=== PATIENT | female | born 1985 | race Caucasian/White ===

== ENCOUNTER 2020-08-20 10:41 | Inpatient (IN) | payer OTHER ==
[~2020-08-20] VITALS: Ht 170.2 cm; Wt 89.9 kg
[2020-08-20 11:10] LABS: BASOPHILS ABSOLUTE AUTO 0.03 K/mm3 (0.00-0.23); BASOPHILS PERCENT AUTO 0 % (0-2); EOSINOPHILS ABSOLUTE AUTO 0.23 K/mm3 (0.00-0.68); EOSINOPHILS PERCENT AUTO 3 % (0-6); Hematocrit 39.8 % (33.0-51.0); Hemoglobin 12.7 g/dL (11.5-16.0); IMMATURE GRAN ABSOLUTE AUTO 0.01 K/mm3 (0.00-0.10); IMMATURE GRAN PERCENT AUTO 0 % (0-1); LYMPHOCYTES ABSOLUTE AUTO 4.37 K/mm3 (0.84-5.20); LYMPHOCYTES PERCENT AUTO 56 % (21-46); MONOCYTES PERCENT AUTO 8 % (4-13); Mean Corpuscular HGB 28.2 pg (26.0-34.0); Mean Corpuscular HGB Conc 31.9 g/dL (31.5-36.5); Mean Corpuscular Volume 88 fL (80-100); Mean Platelet Volume 9.1 fL (9.1-12.4); NEUTROPHILS ABSOLUTE AUTO 2.51 K/mm3 (1.96-9.15); NEUTROPHILS PERCENT AUTO 32 % (41-73); Platelet Count 146 K/mm3 (150-400); RDW Coefficient Variation 14.6 % (11.7-14.2); RDW Standard Deviation 47.8 fL (35.1-46.3); White Blood Cell Count 7.75 K/mm3 (4.00-11.30)
[2020-08-20 11:30] LABS: Acetaminophen, Random <2.0 ug/mL (10.0-30.0); Alanine Aminotransfer (ALT/SGP 70 U/L (12-78); Albumin, Blood 3.6 g/dL (3.4-5.0); Albumin/Globulin Ratio 0.8 (0.8-1.8); Alk Phos 156 U/L (50-136); Anion Gap 4 mmol/L (6-16); Aspartate Aminotrans (AST/SGOT 78 U/L (12-37); Bilirubin, Total 0.3 mg/dL (0.1-1.0); Blood Urea Nitrogen 5 mg/dL (8-24); Bun/Creatinine Ratio 5.9 (12.0-20.0); CO2, Blood 30 mmol/L (21-32); Calcium, Blood 8.8 mg/dL (8.5-10.1); Chloride, Blood 109 mmol/L (98-108); Creatinine, Blood 0.84 mg/dL (0.40-1.00); Ethanol (Alcohol), Blood, Med 360 mg/dL; Free Thyroxine 1.28 ng/dL (0.70-1.60); Globulin, Blood 4.5 g/dL (2.2-4.0); Glomerular Filtration Rate >60 (60-); Glucose, Blood 109 mg/dL (70-99); Potassium, Blood 4.3 mmol/L (3.5-5.5); Salicylate 2.8 mg/dL (2.8-20.0); Sodium, Blood 143 mmol/L (136-145); Total Protein, Blood 8.1 g/dL (6.4-8.2)
[2020-08-20 11:54] LABS: U Amphetamine Screen DETECTED; U Barbituate Screen Not Detected; U Benzodiazapine Screen Not Detected; U Buprenorphine Screen Not Detected; U Cannabinoids Screen Not Detected; U Cocaine Screen Not Detected; U Methadone Screen DETECTED; U Methamphetamine Screen Not Detected; U Opiates Screen Not Detected; U Oxycodone Screen Not Detected; U Phencyclidine Screen Not Detected; U Propoxyphene Screen Not Detected
[2020-08-20] MEDS ORDERED: OMEP20ER PO (13:32)
[2020-08-20] MEDS ORDERED: Amphetamine Sal20 MG PO (13:32)
[2020-08-20] MEDS ORDERED: NEURONTIN300 MG PO (13:32)
[2020-08-20] MEDS ORDERED: Phenergan25 M1 PO (13:33)
[2020-08-20] MEDS ORDERED: Ventolin/Prove6.7 GM INH (13:34)
[2020-08-20] MEDS ORDERED: Buspirone HCl30 MG PO (13:51)
[2020-08-20] MEDS ORDERED: METH40 PO (15:14)
--- NOTE | 2020-08-20 16:49 | NUR ---
Admission/[place] of Care: Patient arrived to unit at 1631hr via stretcher. Patient drowsy but awake and responding to verbal stimuli. Patient oriented to self, place, date/time, and partially to reason for admission. Patient also calm and cooperative with staff, therefore restraints removed upon arrival to unit. Patient denied all suicide ideations, stating she only took the pills and ETOH to get "loaded" before going into [facility]. Therefore, patient placed only on moderate suicide risk. Room mitigation completed before patient's arrival. Remote monitoring confirmed patient is on camera. Call also placed to Dr. Harvey before patient's arrival, confirmed that patient was to be placed on 2MD hold. Civil rights read to patient after arrival. Peripheral IV x1 to lt AC patent and intact, fluids infusing per MD order. Voided using bed-villegas without difficulty. Patient instructed to no get out of bed and instructed on use of call light. Will continue to monitor.
--- NOTE | 2020-08-20 19:10 | NUR ---
ASSUMED CARE PT IN ROOM SLEEPING. AWAKES WITH VERBAL STIMULI. PT VERBALIZED SHE WAS WET AND INCOTINENT OF LARGE AMOUNT OF URINE. PT WAS CLEANED UP. PT IS NPO. 1L NC SATS OF <92% WITH CLEAR LUNG SOUNDS. SR ON HEART MONITOR. LR @200 INFUSING. CIWA OF 4. PT IS ANXIOUS WITH NO REPORT OF PAIN. WILL CONTINUE TO MONITOR.
--- NOTE | 2020-08-20 21:25 | NUR ---
AT APPROX 2049 PRIYA CUMMINGS IN ICU; UPDATES ON PTS RESP RATE OF 6-7 WHILE ASLEEP. NARCAN WAS ORDERED. PT BECAME VERY AGITATED WHEN IN ROOM CALLING PHARMACY REGARDING NARCAN ORDER. SHE REFUSED THE MEDICATION AND SAID "SHE WAS GOING TO LEAVE." STATING THAT HER LEGS WOULD GO "CRAZY" AND THAT WOULD SEND HER INTO WITHDRAWL, WHICH SHE DID NOT WANT. PT STATED THAT THE CONTENTS OF THE BOTTLE SHE TOOK EARLIER TODAY WERE "2 LYRICA, 2 PROMETHAZINES, AND 2 BENADRYL." PT REPORTS DID NOT TAKE ANY ADERALL OTHER THAN HER ONE 20MG DOSE SHE USUALLY TAKES EARLY IN THE MORNING.
--- NOTE | 2020-08-20 21:50 | NUR ---
POISON CONTROL CALLED FOR UPDATE ON PT. NO NEW RECOMMENDATIONS GIVEN; CONTINUE TREATMENTS.
--- NOTE | 2020-08-20 22:55 | NUR ---
TALKE TO PRIYA CARUSO ABOUT PTS RESP RUNNING LESS THAN 8 WHEN SLEEPING AND PT REFUSING INITIALLY AND THEN AGREEING TO NARCAN IF SHE GOT SOMETHING WITH THE NARCAN TO KEEP HER FROM GOING INTO "BAD WITHDRAWALS IN HER LEGS". ORDER NOT TO GIVE NARCAN BECAUSE PT WAS ON METHADONE. ORDER TO PUT PT ON BIPAP. RT NOTIFIED.
[2020-08-21 04:02] LABS: BASOPHILS ABSOLUTE AUTO 0.01 K/mm3 (0.00-0.23); BASOPHILS PERCENT AUTO 0 % (0-2); EOSINOPHILS ABSOLUTE AUTO 0.11 K/mm3 (0.00-0.68); EOSINOPHILS PERCENT AUTO 2 % (0-6); Hematocrit 32.6 % (33.0-51.0); Hemoglobin 10.4 g/dL (11.5-16.0); IMMATURE GRAN ABSOLUTE AUTO 0.01 K/mm3 (0.00-0.10); IMMATURE GRAN PERCENT AUTO 0 % (0-1); LYMPHOCYTES PERCENT AUTO 48 % (21-46); MONOCYTES ABSOLUTE AUTO 0.31 K/mm3 (0.16-1.47); MONOCYTES PERCENT AUTO 6 % (4-13); Mean Corpuscular HGB 28.2 pg (26.0-34.0); Mean Corpuscular HGB Conc 31.9 g/dL (31.5-36.5); Mean Corpuscular Volume 88 fL (80-100); Mean Platelet Volume 8.8 fL (9.1-12.4); NEUTROPHILS ABSOLUTE AUTO 2.31 K/mm3 (1.96-9.15); NEUTROPHILS PERCENT AUTO 44 % (41-73); Platelet Count 114 K/mm3 (150-400); RDW Standard Deviation 48.6 fL (35.1-46.3); Red Blood Cell Count 3.69 M/mm3 (3.80-5.20); White Blood Cell Count 5.25 K/mm3 (4.00-11.30)
--- NOTE | 2020-08-21 04:05 | NUR ---
PT AWAKE IN ROOM, USED BEDPAN WITH MODERATE ASSIST. PT IS BECOMING AGITATED REGARDING NARCAN INCIDENT WHEN ADMITTED; PT IS ANXIOUS. STATES " YOU GUYS PUT ME INTO WITHRAWLS." STATES THAT SHE DOES NOT REMEMBER ANYTHING THAT HAPPENED AFTER SHE ARRIVED TO [facility]. ASKED PT WHAT SHE WAS TAKING LYRICA AND STATED THAT SHE DOES NOT HAVE A RX FOR IT. PT REPORTED THAT SHE TOOK "9 GABAPENTIN, 2 PROMETHAZINE, 2 BENADRYL, 2 LYRICA, AND 2 OMEPRAZOLE."
[2020-08-21 05:34] LABS: Alanine Aminotransfer (ALT/SGP 58 U/L (12-78); Albumin, Blood 2.6 g/dL (3.4-5.0); Albumin/Globulin Ratio 0.8 (0.8-1.8); Alk Phos 97 U/L (50-136); Anion Gap 5 mmol/L (6-16); Aspartate Aminotrans (AST/SGOT 121 U/L (12-37); Bilirubin, Total 0.4 mg/dL (0.1-1.0); Blood Urea Nitrogen 4 mg/dL (8-24); CO2, Blood 27 mmol/L (21-32); Calcium, Blood 7.9 mg/dL (8.5-10.1); Chloride, Blood 114 mmol/L (98-108); Creatinine, Blood 0.66 mg/dL (0.40-1.00); Globulin, Blood 3.3 g/dL (2.2-4.0); Glomerular Filtration Rate >60 (60-); Glucose, Blood 71 mg/dL (70-99); Potassium, Blood 4.1 mmol/L (3.5-5.5); Sodium, Blood 146 mmol/L (136-145)
--- NOTE | 2020-08-21 05:34 | NUR ---
SHIFT SUMMARY PT ALERT AND ORIENTED TO SELF, PLACE, TIME AND SURROUNDINGS; AND IN ROOM. PT BEDREST AND ON SI MODERATE HOLD PER ORDER. PT IS ABLE TO TURN AND ADJUST HERSELF IN BED. BP AND HEART RATE HAVE BEEN STABLE. SATS ARE >92%; RESP WERE LOW FROM 6-8 UNTIL PT WAS PUT ON BIPAP PER ORDER. PT SLEPT WELL THROUGHT THE NIGHT WITH SOME ANXIETY BUT NO AGITATION UNTIL THIS MORNING. NO PAIN REPORTED OTHER THAN A MINOR HEADACHE. CIWAS HAVE RANGED FROM 3 TO 5. NO ACUTE CHANGES.
[2020-08-21 05:36] LABS: Total Protein, Blood 5.9 g/dL (6.4-8.2)
--- NOTE | 2020-08-21 09:30 | NUR ---
PT UP IN ROOM INDEP. A/O X4. ANXIOUS BUT PLEASANT AND COOPERATIVE. C/O ACHING ALL OVER BODY. STATES SHE FEELS LIKE SHE IS STARTING TO GO THROUGH WITHDRAWLS. ALSO INQUIRING ABOUT METHADONE DOSE. CALLED DR. SANCHEZ WHO WILL COME SEE THE PATIENT AND START ALCOHOL WITHDRAWL PROTOCOL.
--- NOTE | 2020-08-21 18:30 | NUR ---
PT REMAINS A/O X4, PLEASANT AND COOPERATIVE ALL DAY. UP IN ROOM INDEP. LIBRIUM AND ATIVAN GIVEN WHEN CIWA REACHES 8. PT IS STAYING IN HOSPITAL THIS WEEKEND AND PLANS TO GO TO [facility] ON SUNDAY FOR INPT TREATMENT. NO SIGN OF DISTRESS. TRANSFERED TO MEDICAL FLOOR 327. REPORT GIVEN TO TRAY REN.
--- NOTE | 2020-08-21 19:11 | NUR ---
TRANSFER PT RECENTLY ARRIVED VIA WHEELCHAIR FROM ICU TO ROOM 327. PT INDEPENDENT IN ROOM, ASKING FOR SNACKS AND ICE CHIPS. NO COMPLAINTS AT THIS TIME. CALL LIGHT IN REACH. REPORT GIVEN TO TERELL REN.
--- NOTE | 2020-08-21 20:06 | NUR ---
MEDICATIONS: PATIENT IS REQUESTING HOME MEDS, GABAPENTIN AND PROMETHAZINE DUE TO N/T IN BILAT FEET AND NAUSEA. ALSO TWO ORDERS ARE PRESENT FOR IVF. DR MALLOY IS CALLED AND ORDERS FOR HOME MEDS ARE OBTAINED AND DC IVF.
[2020-08-22 05:25] LABS: Hematocrit 33.6 % (33.0-51.0); Hemoglobin 10.8 g/dL (11.5-16.0); Mean Corpuscular HGB 27.8 pg (26.0-34.0); Mean Corpuscular HGB Conc 32.1 g/dL (31.5-36.5); Mean Corpuscular Volume 86 fL (80-100); Mean Platelet Volume 9.7 fL (9.1-12.4); Platelet Count 109 K/mm3 (150-400); RDW Coefficient Variation 14.6 % (11.7-14.2); RDW Standard Deviation 46.2 fL (35.1-46.3); Red Blood Cell Count 3.89 M/mm3 (3.80-5.20); White Blood Cell Count 3.25 K/mm3 (4.00-11.30)
[2020-08-22 06:15] LABS: Alanine Aminotransfer (ALT/SGP 59 U/L (12-78); Albumin, Blood 2.7 g/dL (3.4-5.0); Albumin/Globulin Ratio 0.8 (0.8-1.8); Alk Phos 102 U/L (50-136); Anion Gap 5 mmol/L (6-16); Aspartate Aminotrans (AST/SGOT 122 U/L (12-37); Bilirubin, Total 0.5 mg/dL (0.1-1.0); Blood Urea Nitrogen 7 mg/dL (8-24); Bun/Creatinine Ratio 9.7 (12.0-20.0); CO2, Blood 31 mmol/L (21-32); Calcium, Blood 8.5 mg/dL (8.5-10.1); Chloride, Blood 106 mmol/L (98-108); Creatinine, Blood 0.72 mg/dL (0.40-1.00); Globulin, Blood 3.4 g/dL (2.2-4.0); Glomerular Filtration Rate >60 (60-); Glucose, Blood 128 mg/dL (70-99); Magnesium, Blood 2.1 mg/dL (1.6-2.4); Phosphorus, Blood 3.1 mg/dL (2.5-4.9); Potassium, Blood 3.8 mmol/L (3.5-5.5); Sodium, Blood 142 mmol/L (136-145); Total Protein, Blood 6.1 g/dL (6.4-8.2)
--- NOTE | 2020-08-22 06:52 | NUR ---
SHIFT SUMMARY: A&O TO SELF AND PLACE, A WEEK OFF ON THE DATE. VOIDING IN THE BATHROOM, NO BM THIS SHIFT. VSS, SCORING 9,8,9,8 ON WITHDRAWL SCALE. ALTERNATING ATIVAN AND LIBRIUM X2 EACH ARE EFFECTIVE CONTROLING WITHDRAWL S/S. REPORTING NAUSEA BUT IS CONTINUOUSLY ASKING FOR FOOD THROUGH THE SHIFT, PROMETHAZINE WAS GIVEN WITH FAIR EFFECT. ENCOURAGED TO SLOW DOWN ON PO INTAKE TO HELP SETTLE STOMACH.
--- NOTE | 2020-08-22 16:36 | NUR ---
SHIFT SUMMARY MEDICATED FOR ALCOHOL WITHDRAWALS PER EMAR. PT HAS BEEN PLEASANT AND COOPERATIVE, ANXIOUS AT TIMES. GOOD APPETITE. C/O NAUSEA BUT NO VOMITING NOTED. MEDICATED FOR HEADACHE PER DR. SANCHEZ ORDERS. PT UP IN ROOM INDEPENDENTLY. NO SIGNS OF DISTRESS. PLANS FOR PT TO DISCHARGE TO [facility] TOMORROW. CALL LIGHT IN REACH. WILL CONTINUE TO MONITOR AND REPORT TO ONCOMING RN.
--- NOTE | 2020-08-23 07:25 | NUR ---
SHIFT SUMMARY: A&OX4 WITH PERIODS OF CONFUSION AND REPORTED DIZZINESS, BED ALARM IS UTILIZED FOR SAFETY. SCORING 8&9'S ON ETOH WITHDRAWL SCALES, LIBRIUM AND ATIVAN ARE GIVEN PER MAR. PATIENT REPORTS BETTER EFFECT WITH LIBRIUM. PERSISTANT NAUSEA, PROMETHAZINE WAS GIVEN X1 AND ICE CHIPS ARE ENCOURAGED. PATIENT CONTINUED TO REQUEST FOOD WITH NAUSEA PRESENT.
[2020-08-23] MEDS ORDERED: HYDRA25 PO (09:48)
--- NOTE | 2020-08-23 11:47 | NUR ---
DISCHARGE PT DISCHARGED TO [facility] VIA [facility], ESCORTED OUT VIA W/C BY TECHNICAL SALES ADVISOR. PT FORGETFUL, SCATTERED IDEAS, DIFFICULT FOR HER TO FOCUS, STAY ON TRACK. REVIEWED DISCHARGE INSTRUCTIONS, FOLLOW UP APPOINTMENT AND MEDICATION LIST WITH PT. PT VERBALLY INDICATED UNDERSTANDING.
== END 2020-08-23 11:36 | disposition home or self-care (01) | DRG 896 ==
LOC: ER 10:41 → ICUW 14:13 → ICUE 14:32 → MEDS 08-21 18:38 → ENPENDDIS 08-23 10:02 → MEDS 08-23 11:36
PROVIDERS: Family Medicine; Physician Assistant; ADMIT Internal Medicine
PROC: 5A09357 Assistance with Respiratory Ventilation, Less than 24 Consecutive Hours, Continuous Positive Airway Pressure (ICD-10-PCS; principal; 2020-08-21)
DX: F10.220 Alcohol dependence with intoxication, uncomplicated (principal); G92 Toxic encephalopathy; D61.818 Other pancytopenia; T50.902A Poisoning by unspecified drugs, medicaments and biological substances, intentional self-harm, initial encounter; Z78.1 Physical restraint status; D69.6 Thrombocytopenia, unspecified; Y90.8 Blood alcohol level of 240 mg/100 ml or more
CPT/HCPCS: 36415; 80053; 81025; 82947; 83690; 83735; 84100; 84439; 84443; 85025; 85027; 93005; 93010; 94660; 94760; 96361; 96374; 96375; 96376; 99285-25; A9270; G0480; J1630; J1650; J2310; J2405; J7030; J7120